=== PATIENT | male | born 2000 ===

== ENCOUNTER 2019-07-14 16:43 | Outpatient (REF) | payer MEDICAID, SELFPAY ==
[2019-07-14 21:35] LABS: Anion Gap 9.1 mmol/L (3-11); BUN 16 mg/dL (7-18); CO2 28.9 mmol/L (21.0-32.0); CREATININE 0.84 mg/dL (0.70-1.30); Chloride 102 mmol/L (98-107); Glucose 82 mg/dL (74-106); Sodium 140 mmol/L (136-145)
[2019-07-14 21:42] LABS: Hemoglobin A1C 5.6 % (3.8-5.6)
[2019-07-14 22:03] LABS: Vitamin D 25 Total 49.8 ng/ml (30-100)
== END 2019-07-14 17:03 ==
LOC: NCHCN 16:43
PROVIDERS: PCP Nurse Practitioner Family; Visit Provider Nurse Practitioner Community Health
DX: E55.9 Vitamin D deficiency, unspecified (principal); F41.8 Other specified anxiety disorders; E66.9 Obesity, unspecified
CPT/HCPCS: 80048; 82306; 83036